=== PATIENT | male | born 1990 | race Caucasian/White ===

== ENCOUNTER 2016-07-03 02:12 | Emergency (ER) | payer MEDICAID ==
[2016-07-03 02:24] VITALS: BP 127/81; PULSE 85; RESP 16; TEMP 98.4; O2SAT 98
--- NOTE | 2016-07-03 02:39 | EDPHY ---
H & P Stated Complaint: pt c/o memory loss and painful bumps on back x 1-2 weeks HPI/ROS: HPI CHIEF COMPLAINT: "I would like a drug screen" HISTORY OF PRESENT ILLNESS: This patient 26-year-old male, homeless, tells me that he smokes marijuana and methamphetamine regularly, he presents emergency room by walk-in, patient tells me that he is requesting a drug screen he wants to be tested for all possible drugs. Tells me he thinks he is being drugged by other parties. He will not tell me any further information this. I explained to him that I can do a urine drug screen which will test for narcotics benzos marijuana cocaine and methamphetamine he tells me that this is not enough drugs to test for. States that he wants further testing I explained that I am unable to do this emergently in the emergency room however I will be happy to do a urine drug screen. Patient start become agitated and angry at me threatening me. Charge nurse Yvonne Frankel Rn, got involved. He started to get angry and yelling at Yvonne Frankel RN. Patient now is declining any drug screen. He would like to leave the emergency room. Past Medical History: Denies any medical history Past Surgical History: Denies any surgical history Social History: Smokes marijuana and methamphetamine, homeless Family History: Noncontributory ROS REVIEW OF SYSTEMS: A comprehensive 10 point review of systems is otherwise negative aside from elements mentioned in the history of present illness. Exam Constitutional appears well nontoxic, triage nursing summary reviewed, vital signs reviewed, awake/alert. Eyes normal conjunctivae and sclera, EOMI, PERRLA. HENT normal inspection, atraumatic, moist mucus membranes, no epistaxis, neck supple/ no meningismus, no raccoon eyes. Respiratory clear to auscultation bilaterally, normal breath sounds, no respiratory distress, no wheezing. Cardiovascular rate normal, regular rhythm, no murmur, no edema, distal pulses normal. Gastrointestinal soft, non-tender, no rebound, no guarding, normal bowel sounds, no distension, no pulsatile mass. Genitourinary no CVA tenderness. Musculoskeletal no midline vertebral tenderness, full range of motion, no calf swelling, no tenderness of extremities, no meningismus, good pulses, neurovascularly intact. Skin pink, warm, & dry, no rash, skin atraumatic. Neurologic awake, alert and oriented x 3, AAOx3, moves all 4 extremities equally, motor intact, sensory intact, CN II-XII intact, normal cerebellar, normal vision, normal speech. Psychiatric normal mood/affect. Heme/Lymph/Immune no lymphadenopathy. Differential Diagnosis: Patient requesting drug screen as he feels he is being poisoned by patrons. I did offer him a urine drug screen. Patient has now declined and is somewhat irate. I tried to console him however he is requesting to leave the emergency room. Medical Decision Making: Plan for this patient was urine drug screen however patient declined. [id number]: Patient ambulated throughout the emergency room and out the exit of the main entrance. This patient does understand that he is more welcome to return and we could proceed with further drug testing however at this time he somewhat irate and once extensive blood work done extensive testing that I cannot perform. He has left the emergency room on his own will. Of note this patient did not appear psychotic and does not seem to want hurt himself or anybody else. Source: Patient - Medical/Surgical History Hx Asthma: No Hx Chronic Respiratory Disease: No Hx Diabetes: No Hx Cardiac Disease: No Hx Renal Disease: No Hx Cirrhosis: No Hx Alcoholism: No Hx HIV/AIDS: No Hx Splenectomy or Spleen Trauma: No Other PMH: heart valve something - Social History Smoking Status: Current every day smoker Constitutional: Initial Vital Signs Temperature (C) 36.9 C 07/03/16 02:20 Heart Rate 85 07/03/16 02:20 Respiratory Rate 16 07/03/16 02:20 Blood Pressure 127/81 H 07/03/16 02:20 O2 Sat (%) 98 07/03/16 02:20 O2 Delivery Mode Room Air Allergies/Adverse Reactions: No Known Allergies Allergy (Unverified 07/03/16 02:24) Home Medications: Medication Instructions Recorded NK [No Known Home Meds] 07/03/16 Departure - Departure Disposition: Against Medical Advice Clinical Impression: Methamphetamine use Condition: Good Instructions: Methamphetamine (By mouth) Referrals: NONE *PRIMARY CARE P,. [Primary Care Provider] - As per Instructions
== END 2016-07-03 02:45 | disposition left against medical advice (07) ==
DX: F15.90 Other stimulant use, unspecified, uncomplicated (principal); F17.200 Nicotine dependence, unspecified, uncomplicated